=== PATIENT | female | born 1930 | race Caucasian/White ===

== ENCOUNTER 2018-04-16 14:46 | Inpatient (IN) ==
[2018-04-16] MEDS ORDERED: PANTOPRAZOLE 40 MG VIAL IV STA (15:30)
[2018-04-16] MEDS ORDERED: SODIUM CHLORIDE 0.9% 500 ML IV STA (15:30)
[2018-04-16] MEDS ORDERED: ONDANSETRON 4 MG/2 ML VIAL IV STA (15:30)
[2018-04-16 16:01] LABS: Basophils % 0.2 % (0.0-0.8); Hematocrit 34.4 VOL% (35.7-47.0); Hemoglobin 10.9 GM/DL (12.0-16.0); Immature Granulocytes % 1.2 %; Immature Granulocytes Absolute 0.22 #; Lymphocytes # 0.8 10*3/uL (1.4-4.0); Lymphocytes % 4.3 % (21.3-54.2); Mean Corpuscular HGB Conc 31.7 GM/DL (32-36); Mean Corpuscular Hemoglobin 32 PG (27-34); Mean Corpuscular Volume 101.8 FL (87-102); Monocytes # 0.8 10*3/uL (0.11-0.8); Monocytes % 4.3 % (1.7-12.7); Neutrophils # 16.2 10*3/uL (1.4-7.4); Platelet Count 223 T/CUMM (130-400); Red Blood Count 3.38 MC/CUMM (3.8-5.5); Red Cell Distribution Width 13.9 % (9.3-17.3)
[2018-04-16 16:08] LABS: PT Patient Result 10.6 SECS; Partial Thromboplastin Time 22.2 SECS (0-40)
[2018-04-16 16:27] LABS: Alanine Aminotransferase 20 U/L (13-56); Albumin 2.4 G/DL (3.4-5.0); Alkaline Phosphatase 61 U/L (45-117); Amylase 42 U/L (25-115); Aspartate Amino Transferase 16 U/L (0-37); Bilirubin,Total < 0.39 MG/DL (0.2-1.0); Blood Urea Nitrogen 93 MG/DL (7-18); Calcium 8.3 MG/DL (8.5-10.1); Glucose 165 MG/DL (74-106); Potassium 4.6 MMOL/L (3.5-5.1); Sodium 143 MMOL/L (136-145); Total Protein 5.9 G/DL (6.4-8.3)
[2018-04-16] MEDS ORDERED: ALBUTEROL/IPRATROPIUM 3 ML NEB RESP TX PRN (16:53)
[2018-04-16 17:07] LABS: Ammonia 27 UMOL/L (11-32)
[2018-04-16 17:11] LABS: Lactic Acid 1.2 MMOL/L (0.4-2.0)
[2018-04-16] MEDS: PANTOPRAZOLE INJ 200 MG in SODIUM CHLORIDE 0.9% 250 ML IV SCH (17:27)
[2018-04-16] MEDS ORDERED: GLUCAGON 1 MG VIAL IM PRN (17:43)
[2018-04-16] MEDS ORDERED: DEXTROSE 50% 25 GM/50 ML VIAL IV PRN (17:43)
[2018-04-16] MEDS ORDERED: ONDANSETRON 4 MG/2 ML VIAL IV PRN (17:45)
[2018-04-16] MEDS: SODIUM CHLORIDE 0.45% 1,000 ML IV SCH (18:10)
[2018-04-16] MEDS: INSULIN REGULAR 100 UNIT/ML SUBCUT SCH ×2 (18:15→23:46)
[2018-04-16 18:31] LABS: Apearance,Urine CLEAR (Clear); Bilirubin,Urine Negative (Negative); Blood, Urine Negative (Negative); Glucose,Urine (UA) Negative (Negative); Ketones,Urine 5 mg/dL (Negative); Nitrite,Urine Negative (Negative); Protein,Urine Negative; RBC,Urine 1 /HPF (0-4); Urine Color Yellow (Yellow); Urine Specific Gravity 1.016 (1.001-1.035); Urine Urobilinogen < 2.0 EU/DL (0.2-1.0); WBC,Urine <1 /HPF (0-6)
[2018-04-16 21:14] LABS: Band Neutrophils 3 % (0-10); Lymphocytes 6 % (20-55); Macrocytosis 1+; Platelet Estimate Normal; Segmented Neutrophils 87 % (50-85); Total Cells Counted 100
[2018-04-16] MEDS: CARVEDILOL 12.5 MG TABLET PO SCH (23:07)
[2018-04-16 23:32] LABS: Hematocrit 30.6 VOL% (35.7-47.0); Hemoglobin 9.5 GM/DL (12.0-16.0)
[2018-04-17] MEDS: SODIUM CHLORIDE 0.45% 1,000 ML IV SCH ×3 (04:16→20:52)
[2018-04-17] MEDS: INSULIN REGULAR 100 UNIT/ML SUBCUT SCH ×3 (05:59→18:03)
[2018-04-17 06:07] LABS: Basophils # 0.1 10*3/uL (0.0-0.2); Basophils % 0.3 % (0.0-0.8); Eosinophils # 0.1 10*3/uL (0.0-0.87); Eosinophils % 0.3 % (0.00-10.9); Hematocrit 28.9 VOL% (35.7-47.0); Hemoglobin 9.1 GM/DL (12.0-16.0); Immature Granulocytes % 1.1 %; Immature Granulocytes Absolute 0.21 #; Lymphocytes # 1.4 10*3/uL (1.4-4.0); Mean Corpuscular HGB Conc 31.5 GM/DL (32-36); Mean Corpuscular Hemoglobin 33 PG (27-34); Mean Corpuscular Volume 104.3 FL (87-102); Mean Platelet Volume 11.8 FL (9.6-12.0); Monocytes # 1.5 10*3/uL (0.11-0.8); Monocytes % 7.4 % (1.7-12.7); Neutrophils # 16.7 10*3/uL (1.4-7.4); Neutrophils % 83.9 % (38.7-73.9); Platelet Count 169 T/CUMM (130-400); Red Blood Count 2.77 MC/CUMM (3.8-5.5); Red Cell Distribution Width 14.2 % (9.3-17.3); White Blood Count 19.9 T/CUMM (4-12)
[2018-04-17 06:18] LABS: PT Patient Result 10.8 SECS
[2018-04-17 06:24] LABS: Calcium 8.3 MG/DL (8.5-10.1); Osmolality,Calculated 313.6 MOS/KG (273-304); Potassium 4.7 MMOL/L (3.5-5.1)
[2018-04-17] MEDS ORDERED: PROPOFOL 200 MG/20 ML VIAL IV ONE (09:00)
[2018-04-17] MEDS ORDERED: LIDOCAINE 100 MG/5 ML SYRINGE ONE (09:00)
[2018-04-17] MEDS ORDERED: ETOMIDATE 20 MG/10 ML VIAL IV ONE (09:00)
[2018-04-17] MEDS: cefTRIAXone 1,000 MG in SYRINGE 1 EACH IV SCH ×2 (09:25→20:22)
[2018-04-17] MEDS: CARVEDILOL 12.5 MG TABLET PO SCH ×2 (09:39→20:24)
[2018-04-17 11:00] LABS: Hematocrit 26.9 VOL% (35.7-47.0); Hemoglobin 8.4 GM/DL (12.0-16.0)
[2018-04-17] MEDS ORDERED: ALBUTEROL 2.5 MG/3 ML NEB RESP TX ONE (13:56)
[2018-04-17] MEDS: PANTOPRAZOLE INJ 200 MG in SODIUM CHLORIDE 0.9% 250 ML IV SCH (18:03)
[2018-04-18] MEDS: PANTOPRAZOLE INJ 200 MG in SODIUM CHLORIDE 0.9% 250 ML IV SCH ×2 (00:19→18:07)
[2018-04-18] MEDS: INSULIN REGULAR 100 UNIT/ML SUBCUT SCH ×4 (00:25→18:07)
[2018-04-18] MEDS: SODIUM CHLORIDE 0.45% 1,000 ML IV SCH ×3 (04:51→18:07)
[2018-04-18 07:55] LABS: Basophils % 0.2 % (0.0-0.8); Eosinophils # 0.3 10*3/uL (0.0-0.87); Hematocrit 23.5 VOL% (35.7-47.0); Hemoglobin 7.5 GM/DL (12.0-16.0); Immature Granulocytes % 1.1 %; Immature Granulocytes Absolute 0.14 #; Lymphocytes # 1.2 10*3/uL (1.4-4.0); Lymphocytes % 9.3 % (21.3-54.2); Mean Corpuscular HGB Conc 31.9 GM/DL (32-36); Mean Corpuscular Hemoglobin 34 PG (27-34); Mean Corpuscular Volume 105.4 FL (87-102); Mean Platelet Volume 11.8 FL (9.6-12.0); Monocytes % 7.5 % (1.7-12.7); NRBC # 0.04 10*3/uL; Neutrophils # 10.3 10*3/uL (1.4-7.4); Neutrophils % 79.9 % (38.7-73.9); Platelet Count 132 T/CUMM (130-400); Red Blood Count 2.23 MC/CUMM (3.8-5.5); Red Cell Distribution Width 14.5 % (9.3-17.3); White Blood Count 12.9 T/CUMM (4-12)
[2018-04-18 08:19] LABS: Albumin 2.1 G/DL (3.4-5.0); Bilirubin,Total 0.4 MG/DL (0.2-1.0); Calcium 8.3 MG/DL (8.5-10.1); Osmolality,Calculated 298.7 MOS/KG (273-304); Potassium 4.1 MMOL/L (3.5-5.1); Total Protein 4.8 G/DL (6.4-8.3)
[2018-04-18 08:23] LABS: INR 1.1; PT Patient Result 11.7 SECS
[2018-04-18] MEDS ORDERED: diphenhydrAMINE CAP 25 MG CAPSULE PO PRN (09:03)
[2018-04-18] MEDS ORDERED: ACETAMINOPHEN 325 MG TABLET PO PRN (09:03)
[2018-04-18] MEDS ORDERED: FUROSEMIDE 20 MG/2 ML VIAL IV PRN (09:03)
[2018-04-18] MEDS ORDERED: SODIUM CHLORIDE 0.9% 1,000 ML IV PRN (09:03)
[2018-04-18] MEDS: CARVEDILOL 12.5 MG TABLET PO SCH ×2 (09:12→20:25)
[2018-04-18] MEDS: cefTRIAXone 1,000 MG in SYRINGE 1 EACH IV SCH ×2 (09:15→23:50)
[2018-04-19] MEDS: INSULIN REGULAR 100 UNIT/ML SUBCUT SCH ×3 (00:15→12:34)
[2018-04-19 06:03] LABS: Basophils % 0.3 % (0.0-0.8); Eosinophils # 0.3 10*3/uL (0.0-0.87); Eosinophils % 3.3 % (0.00-10.9); Hematocrit 28.2 VOL% (35.7-47.0); Immature Granulocytes % 0.8 %; Immature Granulocytes Absolute 0.07 #; Lymphocytes % 10.6 % (21.3-54.2); Mean Corpuscular HGB Conc 33.3 GM/DL (32-36); Mean Corpuscular Hemoglobin 33 PG (27-34); Mean Corpuscular Volume 98.6 FL (87-102); Mean Platelet Volume 11.8 FL (9.6-12.0); Monocytes # 0.8 10*3/uL (0.11-0.8); Monocytes % 8.3 % (1.7-12.7); NRBC # 0.11 10*3/uL; Neutrophils # 6.9 10*3/uL (1.4-7.4); Neutrophils % 76.7 % (38.7-73.9); Platelet Count 103 T/CUMM (130-400); Red Blood Count 2.86 MC/CUMM (3.8-5.5); Red Cell Distribution Width 16.6 % (9.3-17.3)
[2018-04-19 06:04] LABS: INR 1.2
[2018-04-19 06:05] LABS: Hemoglobin 9.4 GM/DL (12.0-16.0)
[2018-04-19 06:28] LABS: Albumin 1.9 G/DL (3.4-5.0); Bilirubin,Total 0.5 MG/DL (0.2-1.0); Calcium 8.7 MG/DL (8.5-10.1); Potassium 3.8 MMOL/L (3.5-5.1); Total Protein 4.6 G/DL (6.4-8.3)
[2018-04-19] MEDS: CARVEDILOL 12.5 MG TABLET PO SCH (09:57)
[2018-04-19] MEDS: cefTRIAXone 1,000 MG in SYRINGE 1 EACH IV SCH (11:14)
[2018-04-19 11:16] VITALS: BP 104/65
[2018-04-20] MEDS ORDERED: PANTOPRAZOLE 40 MG VIAL IV SCH (09:00)
== END 2018-04-19 12:52 | disposition swing bed (61) | DRG 369 ==
LOC: N.ED 14:46 → N.EDINP 16:51 → N.3E 20:22
PROVIDERS: ADMIT Internal Medicine; ATTEND Internal Medicine